=== PATIENT | female | born 1975 | race Caucasian/White ===

== ENCOUNTER 2020-03-09 22:56 | Observation (INO) | payer OTHER ==
[2020-03-09] MEDS ORDERED: KETOROLAC TROMETHAMINE 60 MG/2 ML VIAL ONE (23:02)
--- NOTE | 2020-03-10 00:17 | PDOC ---
History of Present Illness - General Chief Complaint: Chest Pain Stated Complaint: BACK PAIN Time Seen by Provider: 03/09/20 23:49 - History of Present Illness Initial Comments: 03/10/20 00:02 44yo female with PMH of HTN, GERD, and bariatric surgery BIBEMS with epigastric/chest pain, resolved after toradol given by EMS. States she was having her usual chronic back pain, so she took 800mg of ibuprofen. She then began experiencing epigastric/chest pain, shortness of breath, and a feeling that she was suffocating. When EMS gave her toradol, her symptoms resolved. Denies radiation of the pain. Not exertional or positional. Also reports forcing herself to vomit to relieve the pain, but it did not help, and no blood. Reports passing gas normally, last BM earlier today. No urinary symptoms. ROS otherwise negative. PMH/PSH: as above Meds: lisinopril, omeprazole Allergies: none ETOH/drugs/tobacco: denies FH: no concerning cardiac history ROS GENERAL/CONSTITUTIONAL: No fever or chills. No weakness. HEAD, EYES, EARS, NOSE AND THROAT: No change in vision. No ear pain or discharge. No sore throat. CARDIOVASCULAR: chest pain and SOB RESPIRATORY: No cough, wheezing, or hemoptysis. GASTROINTESTINAL: vomiting. No nausea, diarrhea or constipation. GENITOURINARY: No dysuria, frequency, or change in urination. MUSCULOSKELETAL: No joint or muscle swelling or pain. No neck pain. chronic back pain SKIN: No rash NEUROLOGIC: No headache, vertigo, loss of consciousness, or change in strength/sensation. ENDOCRINE: No increased thirst. No abnormal weight change HEMATOLOGIC/LYMPHATIC: No anemia, easy bleeding, or history of blood clots. ALLERGIC/IMMUNOLOGIC: No hives or skin allergy. PE GENERAL: Awake, alert, and fully oriented, in no acute distress HEAD: No signs of trauma, normocephalic, atraumatic EYES: PERRLA, EOMI, sclera anicteric, conjunctiva clear ENT: Auricles normal inspection, hearing grossly normal, nares patent, oropharynx clear without exudates. Moist mucosa NECK: Normal ROM, supple, no lymphadenopathy, JVD, or masses LUNGS: No distress, speaks full sentences, clear to auscultation bilaterally HEART: Regular rate and rhythm, normal S1 and S2, no murmurs, rubs or gallops, peripheral pulses normal and equal bilaterally. CHEST: No chest wall tenderness or crepitus ABDOMEN: Soft, epigastric tenderness. No guarding, no rebound. No masses EXTREMITIES : Normal inspection, Normal range of motion, no edema. No clubbing or cyanosis. NEUROLOGICAL: Normal speech, normal gait, no focal sensorimotor deficits SKIN: Warm, Dry, normal turgor, no rashes or lesions noted Vital Signs Temp Pulse Resp BP Pulse Ox 98.5 F 86 19 127/85 100 03/09/20 23:02 03/09/20 23:02 03/09/20 23:02 03/09/20 23:02 03/09/20 23:02 MDM: 44yo female with PMH of HTN, GERD, and bariatric surgery BIBEMS with epigastric/chest pain, resolved after toradol given by EMS. Also reports forcing herself to vomit to relieve the pain. Exam notable for epigastric tenderness. DDx includes ACS, SBO, bariatric complication, GERD. -EKG -CXR -CBC, CMP, coags, lipase, trops -CT A/P with oral and IV contrast 03/10/20 00:22 EKG: NSR, rate 79, normal axis, QTc 442, ~0.5mm ST depressions in II, aVF, V6. CXR: wnl (my read) Labs: WBC 13 without shift. Labs otherwise wnl. CT A/P: small amount of pelvic free fluid, possibly physiologic. No evidence of acute pathology Heart Score 3. Admit tele obs. 03/10/20 02:25 Signed out to admitting team Past History - Medical History Allergies/Adverse Reactions: Allergies Allergy/AdvReac Type Severity Reaction Status Date / Time No Known Allergies Allergy Verified 03/09/20 23:05 Home Medications: Ambulatory Orders Lisinopril 20 mg PO DAILY 03/10/20 - Reproductive History Is Patient Now?: No - Psycho-Social/Smoking History Smoking History: Never smoked - Substance Abuse Hx (Audit-C & DAST Scrn) How often the patient has a drink containing alcohol: Never Score: In Men: 4 or > Positive; In Women: 3 or > Positive: 0 Screen Result (Pos requires Nsg. Audit-10AR): Negative In the last yr the pt used illegal drug/Rx for NonMed reason: No Score: Yes response is considered Positive: 0 Screen Result (Positive result requires Nsg. DAST-10): Negative *Physical Exam - Vital Signs Last Vital Signs Temp Pulse Resp BP Pulse Ox 98.5 F 86 19 127/85 100 03/09/20 23:02 03/09/20 23:02 03/09/20 23:02 03/09/20 23:02 03/09/20 23:02 Heart Score/ECG Review - History History: Slightly suspicious - Electrocardiogram EKG: Non specific repolarization disturbance - Age Age: 45-65 - Risk Factors Risk Factors Heart Score: Yes Hx Hypertension, Yes Hx Obesity Based on the list above the patient has:: 1-2 risk factors - Troponin Troponin: </= normal limit - Score Heart Score - Total: 3 ED Treatment Course - LABORATORY CBC & Chemistry Diagram: 03/10/20 00:30 03/10/20 00:30 Discharge - Discharge Information Problems reviewed: Yes Clinical Impression/Diagnosis: Epigastric pain, Abnormal EKG Chest pain Qualifiers: Chest pain type: unspecified Qualified Code(s): R07.9 - Chest pain, unspecified Vomiting Qualifiers: Vomiting type: unspecified Vomiting Intractability: non-intractable Nausea presence: without nausea Qualified Code(s): R11.11 - Vomiting without nausea Condition: Stable - Admission Yes - Follow up/Referral - Patient Discharge Instructions - Post Discharge Activity
[2020-03-10 00:54] LABS: BASO % 0.2 % (0-2.0); EOS % 3.2 % (0-4.5); HEMATOCRIT 36.6 % (32.4-45.2); HEMOGLOBIN 12.3 GM/dL (10.7-15.3); LYMPH % 13.6 % (8-40); MCH 29.4 pg (25.7-33.7); MCHC 33.7 g/dl (32.0-36.0); MEAN CELL VOLUME 87.2 fl (80-96); MEAN PLT VOLUME 9.7 fl (7.5-11.1); MONO % 5.5 % (3.8-10.2); NEUT % 77.5 % (42.8-82.8); PLATELET COUNT 225 K/MM3 (134-434); RDW 13.2 % (11.6-15.6)
[2020-03-10 01:07] LABS: INR 1.03 (0.83-1.09); PROTHROMBIN TIME (PATIENT) 12.1 SEC (9.7-13.0)
[2020-03-10 01:10] LABS: ACTIVATED PTT 33.5 SECONDS (25.2-36.5)
[2020-03-10 01:20] LABS: ALBUMIN 3.7 g/dl (3.4-5.0); ALK PHOS 100 U/L (45-117); ANION GAP 7 MMOL/L (8-16); BILIRUBIN,TOTAL 0.3 mg/dL (0.2-1); BLOOD UREA NITROGEN 13.5 mg/dL (7-18); CALCIUM 9.1 mg/dL (8.5-10.1); CHLORIDE 105 mmol/L (98-107); CO2 27 mmol/L (21-32); CREATININE 0.8 mg/dL (0.55-1.3); GLUCOSE,RANDOM 123 mg/dL (74-106); LIPASE 138 U/L (73-393); POTASSIUM 3.9 mmol/L (3.5-5.1); SGOT/AST 32 U/L (15-37); SGPT/ALT 32 U/L (13-61); SODIUM 138 mmol/L (136-145); TOT PROT 6.9 g/dl (6.4-8.2)
--- NOTE | 2020-03-10 02:41 | PDOC ---
Documentation entered by Megan Lind SCRIBE, acting as scribe for Christie Tillman DO. Christie Tillman DO: This documentation has been prepared by the Lelo beltran Brenda, SCRIBE, under my direction and personally reviewed by me in its entirety. I confirm that the documentation accurately reflects all work, treatment, procedures, and medical decision making performed by me. Attending Attestation - Resident Resident Name: Artur Martinez - ED Attending Attestation I have performed the following: I have examined & evaluated the patient, The case was reviewed & discussed with the resident, I agree w/resident's findings & plan, Exceptions are as noted - HPI HPI: 03/10/20 01:26 See resident HPI. - Physicial Exam PE: 03/10/20 01:26 See Resident Physical Exam. - Medical Decision Making 03/10/20 02:37 44 yo female with epigastric and chest pain after taking motrin, s/p one episode of self induced vomiting CT abd/pelvis shows no significant acute abnormality pt found to have S-T segment depressions in multiple leads with no old for comparison will admit for tele obs for atypical chest pain Discharge - Discharge Information Problems reviewed: Yes Clinical Impression/Diagnosis: Epigastric pain, Abnormal EKG Chest pain Qualifiers: Chest pain type: unspecified Qualified Code(s): R07.9 - Chest pain, unspecified Vomiting Qualifiers: Vomiting type: unspecified Vomiting Intractability: non-intractable Nausea presence: without nausea Qualified Code(s): R11.11 - Vomiting without nausea Condition: Stable - Follow up/Referral - Patient Discharge Instructions - Post Discharge Activity
--- NOTE | 2020-03-10 03:36 | HP ---
CHIEF COMPLAINT: epigastric/chest pain PCP: Dr. Mcelroy HISTORY OF PRESENT ILLNESS: 44 year old mainly Dominican speaking female with a past medical history of hypertension, GERD, and bariatric surgery BIBEMS with symptoms of epigastric/chest pain which was resolved after toradol given by EMS. She reported she has chronic back pain and she took 800mg of ibuprofen. She then began experiencing epigastric/chest pain, shortness of breath, and a feeling that she was suffocating. When EMS gave her toradol, her symptoms resolved. She denied radiation of the pain and chest pain is nonexertional or positional. ER course was notable for: (1) normal troponin (2) EKG with a normal sinus rhythm and T wave inversions in lead III,aVR and V4 (3) CT A/P: small amount of pelvic free fluid, possibly physiologic, no evidence of acute pathology (4) CXR normal Recent Travel: no PAST MEDICAL HISTORY: hypertension PAST SURGICAL HISTORY: bariatric surgery Social History: Smoking:no Alcohol:no Drugs: no Family History: Denies heart disease in family Allergies No Known Allergies Allergy (Verified 03/09/20 23:05) HOME MEDICATIONS: Home Medications Medication Instructions Recorded Lisinopril 20 mg PO DAILY 03/10/20 REVIEW OF SYSTEMS CONSTITUTIONAL: Absent: fever, chills, diaphoresis, generalized weakness, malaise, loss of appetite, weight change HEENT: Absent: rhinorrhea, nasal congestion, throat pain, throat swelling, difficulty swallowing, mouth swelling, ear pain, eye pain, visual changes CARDIOVASCULAR: Absent: chest pain, syncope, palpitations, irregular heart rate, li ghtheadedness, peripheral edema RESPIRATORY: Absent: cough, shortness of breath, dyspnea with exertion, orthopnea, wheezing, stridor, hemoptysis GASTROINTESTINAL: Absent: epigastric pain, abdominal distension, nausea, vomiting, diarrhea, constipation, melena, hematochezia GENITOURINARY: Absent: dysuria, frequency, urgency, hesitancy, hematuria, flank pain, genital pain MUSCULOSKELETAL: Absent: myalgia, arthralgia, joint swelling, chronic back pain, neck pain SKIN: Absent: rash, itching, pallor HEMATOLOGIC/IMMUNOLOGIC: Absent: easy bleeding, easy bruising, lymphadenopathy, frequent infections ENDOCRINE: Absent: unexplained weight gain, unexplained weight loss, heat intolerance, cold intolerance NEUROLOGIC: Absent: headache, focal weakness or paresthesias, dizziness, unsteady gait, sei zure, mental status changes, bladder or bowel incontinence PSYCHIATRIC: Absent: anxiety, depression, suicidal or homicidal ideation, hallucinations. PHYSICAL EXAMINATION Vital Signs - 24 hr 03/09/20 03/10/20 03/10/20 23:02 00:50 02:21 Temperature 98.5 F Pulse Rate 86 Pulse Rate [ 83 Radial] Respiratory 19 17 Rate Blood Pressure 127/85 Blood Pressure 114/76 [Left Arm] O2 Sat by Pulse 100 100 100 Oximetry (%) General no acute distress Vital signs reviewed afebrile Neuro no focal deficits Lungs CTA nonlabored breathing effort no rales no wheezing Heart s1s2 rate regular Abdomen soft nontender nondistended Extremities warm to touch no pitting edema no cyanosis Skin nail beds and lips pink Mood calm Laboratory Results - last 24 hr 03/10/20 03/10/20 03/10/20 00:30 00:30 00:30 WBC 13.0 H RBC 4.20 Hgb 12.3 Hct 36.6 MCV 87.2 MCH 29.4 MCHC 33.7 RDW 13.2 Plt Count 225 MPV 9.7 Absolute Neuts (auto) 10.0 H Neutrophils % 77.5 Lymphocytes % 13.6 Monocytes % 5.5 Eosinophils % 3.2 Basophils % 0.2 Nucleated RBC % 0 PT with INR 12.10 INR 1.03 PTT (Actin FS) 33.5 Sodium 138 Potassium 3.9 Chloride 105 Carbon Dioxide 27 Anion Gap 7 L BUN 13.5 Creatinine 0.8 Est GFR (CKD-EPI)AfAm 102.47 Est GFR (CKD-EPI)NonAf 88.41 Random Glucose 123 H Calcium 9.1 Total Bilirubin 0.3 AST 32 ALT 32 Alkaline Phosphatase 100 Creatine Kinase 134 Troponin I < 0.02 Total Protein 6.9 Albumin 3.7 Lipase 138 ASSESSMENT/PLAN: Mrs. Ratliff is a 44 year old mainly Dominican speaking female with a past medical history of hypertension, GERD, and bariatric surgery who presented with symptoms of epigastric/chest pain. She was found to have a normal troponin #1 atypical chest pain normal troponin, CXR normal, BP normotensive EKG with a normal sinus rhythm, T wave inversions in lead III,aVR and V4 continue to trend troponins Cardiology- Dr. Valadez consulted #2 epigastric pain + leukocytosis, currently afebrile lipase normal CT A/P: small amount of pelvic free fluid, no evidence of acute pathology GI consulted- Dr. Landa repeat CBC in am and if WBC elevated consult Infectious Diseases in am #3 hypertension controlled c/w lisinopril DVT Prophylaxis low risk OOB as tolerated SCD's FEN no IVF indicated BMP daily, replete electrolytes as needed low sodium diet Family Medical History Family History: Denies Visit type - Emergency Visit Emergency Visit: Yes ED Registration Date: 03/10/20 Care time: The patient presented to the Emergency Department on the above date and was hospitalized for further evaluation of their emergent condition. - New Patient This patient is new to me today: Yes Date on this admission: 03/10/20 - Critical Care Critical Care patient: No
[2020-03-10 07:21] LABS: HEMATOCRIT 35.9 % (32.4-45.2); MCHC 33.5 g/dl (32.0-36.0); MEAN CELL VOLUME 86.6 fl (80-96); MEAN PLT VOLUME 9.6 fl (7.5-11.1); PLATELET COUNT 231 K/MM3 (134-434); RBC 4.14 M/mm3 (3.60-5.2); RDW 13.1 % (11.6-15.6); WHITE BLOOD COUNT 8.7 K/mm3 (4.0-10.0)
[2020-03-10 07:47] LABS: ANION GAP 8 MMOL/L (8-16); BLOOD UREA NITROGEN 12.8 mg/dL (7-18); CALCIUM 8.7 mg/dL (8.5-10.1); CHLORIDE 106 mmol/L (98-107); CO2 25 mmol/L (21-32); CREATININE 0.7 mg/dL (0.55-1.3); GLUCOSE,RANDOM 100 mg/dL (74-106); POTASSIUM 4.2 mmol/L (3.5-5.1); SODIUM 140 mmol/L (136-145)
--- NOTE | 2020-03-10 09:29 | PN ---
Progress Note, Physician Chief Complaint: Chest pain Epigastric pain History of Present Illness: Ms Devries 44 year old came in with cc of epigastric pain that started around 9 pm last evening after she took 800 mg of ibuprofen for her sciatica pain. Pt then when to sleep, woke up with pain, tried to vomit, which did not help, which made her come to [facility] ER. Pt states she takes ibuprofen once or twice a week for her back pain. Pt denies any SOB, dizziness, light headedness, pain radiation to her back,jaw or arms. Pt states she hasn't had pain like this in the past, doesn't see GI. She has seen Cardiology in [facility] (doesn't know name or hospital affiliation) once. Pt also has hx of gastric bypass. Daughter on the phone has completely different story, that pt's chest pain has been intermittently ongoing for past 3 weeks. She is worried prefers to get the workup done inpatient. - Current Medication List Current Medications: Active Medications Lisinopril (Prinivil) 20 mg PO DAILY FLACO Pantoprazole Sodium (Protonix -) 40 mg PO DAILY FLACO - Objective Vital Signs: Vital Signs Temperature 97.7 F 03/10/20 07:15 Pulse Rate 77 03/10/20 07:15 Respiratory Rate 18 03/10/20 07:15 Blood Pressure 114/73 03/10/20 07:15 O2 Sat by Pulse Oximetry (%) 98 03/10/20 06:10 Constitutional: Yes: Well Nourished, No Distress, Calm Cardiovascular: Yes: Regular Rate and Rhythm Respiratory: Yes: Regular, CTA Bilaterally Gastrointestinal: Yes: Normal Bowel Sounds, Soft, Tenderness, Epigastrium Genitourinary: Yes: WNL Musculoskeletal: Yes: WNL Extremities: Yes: WNL Edema: No Peripheral Pulses WNL: Yes Neurological: Yes: Alert, Oriented Psychiatric: Yes: Alert, Oriented Labs: CBC, BMP 03/10/20 05:43 03/10/20 05:43 INR, PTT INR 1.03 (0.83-1.09) 03/10/20 00:30 Problem List - Problems (1) Chest pain Assessment/Plan: -Trops negative -EKG-Non specific changes -atypical CP -Cardiology consult -No telemetry needed at this time -Echo -Shanel scan in AM, as pt already had breakfast this AM -NPO after midnight Problems reviewed: Yes Code(s): R07.9 - CHEST PAIN, UNSPECIFIED Qualifiers: Chest pain type: unspecified Qualified Code(s): R07.9 - Chest pain, unspecified (2) Epigastric pain Assessment/Plan: -GI consult -PPI -Recommended to avoid NSAID's -May use Acetaminophen 1 g Q6H PRN for pain or even try gabapentin on daily basis. Problems reviewed: Yes Code(s): R10.13 - EPIGASTRIC PAIN Assessment/Plan See problem list
--- NOTE | 2020-03-10 10:04 | CON.GI ---
Consult Consult Specialty:: GI Referred by:: Hospitalist service Reason for Consultation:: Chest pain - History of Present Illness Chief Complaint: [employer] [id number] Utilized: pain in lower chest, palpitations History of Present Illness: 44F admitted for evaluation of lower chest pain that occurred suddently last night. Also describes palpitations. She point to under her left breast when describing other locations of the pain. Alleviated by toradol. No dysphagia. No abdominal pain, nausea, vomiting, fevers chills. No change in bowel habits. No similar episodes in the past. No pain currently. - History Source History Provided By: Patient Limitations to Obtaining History: No Limitations - Past Medical History Cardio/Vascular: Yes: HTN Gastrointestinal: Yes: Other (H. Pylori) ...LMP: 03/09/20 ...: No - Past Surgical History Additional Surgical History: Gastric bypass (unclear if sleeve or actual bypass) - Smoking History Smoking history: Never smoked Home Medications - Allergies Allergies/Adverse Reactions: Allergies Allergy/AdvReac Type Severity Reaction Status Date / Time No Known Allergies Allergy Verified 03/09/20 23:05 - Home Medications Home Medications: Ambulatory Orders Lisinopril 20 mg PO DAILY 03/10/20 Family Medical History Other Family History: Mother: Alive: healthy. Father: : natural causes. 4 brothers, 6 sisters: healthy, some with DM II. 4 children: healthy. No family history of colorectal cancer Review of Systems - Review of Systems Cardiovascular: reports: Chest Pain Respiratory: denies: Cough Gastrointestinal: denies: Abdominal Pain, Nausea, Vomiting Physical Exam-GI Vital Signs: Vital Signs Temperature 97.7 F 03/10/20 07:15 Pulse Rate 77 03/10/20 07:15 Respiratory Rate 18 03/10/20 07:15 Blood Pressure 114/73 03/10/20 07:15 O2 Sat by Pulse Oximetry (%) 98 03/10/20 06:10 Constitutional: Yes: Calm Eyes: No: Sclera Icterus Cardiovascular: Yes: Regular Rate and Rhythm Respiratory: Yes: CTA Bilaterally Gastrointestinal Inspection: Yes: Scars (healed trochar scars). No: Distention ...Auscultate: Yes: Normoactive Bowel Sounds ...Palpate: Yes: Soft. No: Hepatomegaly, Splenomegaly, Tenderness ...Percussion: No: Tympanitic Musculoskeletal: Yes: Other (Tenderness to palpation along left lateral border of sternum and under left breast along ribs) Edema: No Neurological: Yes: Alert Labs: CBC, BMP 03/10/20 05:43 03/10/20 05:43 INR, PTT INR 1.03 (0.83-1.09) 03/10/20 00:30 Problem List - Problems (1) Chest pain Assessment/Plan: Reproducible chest pain, also with palpitations. ? cardiac / musculoskeletal/Somatic etiology Advise: Cardiac evaluation Evaluation of ? somatic cause of pain (costochondritis) per primary team Will sign off, recall GI as needed Code(s): R07.9 - CHEST PAIN, UNSPECIFIED Qualifiers: Chest pain type: unspecified Qualified Code(s): R07.9 - Chest pain, un specified
[2020-03-10] MEDS ORDERED: LISINOPRIL 20 MG TABLET (FP) ONE (10:29)
[2020-03-10] MEDS ORDERED: PANTOPRAZOLE 40 MG TABLET ONE (10:29)
[2020-03-10] MEDS: PANTOPRAZOLE 40 MG TABLET PO SCH (10:30)
--- NOTE | 2020-03-10 10:53 | EKG ---
Test Reason : Blood Pressure : / mmHG Vent. Rate : 079 BPM Atrial Rate : 079 BPM P-R Int : 112 ms QRS Dur : 096 ms QT Int : 386 ms P-R-T Axes : 030 059 013 degrees QTc Int : 442 ms NORMAL SINUS RHYTHM NONSPECIFIC T WAVE ABNORMALITY ABNORMAL ECG NO PREVIOUS ECGS AVAILABLE Confirmed by Reinier Bashir MD ([id number]) on 03/10/2020 10:52:24 AM Referred By: Confirmed By:Reinier Bashir MD
[2020-03-10] MEDS: LISINOPRIL 20 MG TABLET (FP) PO SCH (10:54)
--- NOTE | 2020-03-10 11:20 | CON.CARD ---
Consult Consult Specialty:: Cardiology Referred by:: Dr. Benavides Reason for Consultation:: Chest pain/sob - History of Present Illness Chief Complaint: chest pain/sob History of Present Illness: 44 year old woman pmh HTN, GERD, Obesity s/p bariatric surgery adm with Chest pain and sob. Pt seen and examined today in [facility]. Spoke with her daughter Tamara on the phone at bedside who assisted with translation. Pt has been having intermittent chest discomfort for approx 3 weeks, brief sharp episodes. yesterday had severe sharp chest pain that did not go away and was associated with sob thus she called EMS. She was given Toradol with relief of her pain. Cardiac enzymes wnl. EKG nonspecific abnl. No current chest pain or sob. no palpitations, pnd, orthopnea or le edema. - History Source History Provided By: Patient, Family Member Limitations to Obtaining History: Language Barrier - Past Medical History Cardio/Vascular: Yes: HTN Gastrointestinal: Yes: Other (H. Pylori) ...LMP: 03/09/20 ...: No - Past Surgical History Additional Surgical History: Gastric bypass (unclear if sleeve or actual bypass) - Smoking History Smoking history: Never smoked Home Medications - Allergies Allergies/Adverse Reactions: Allergies Allergy/AdvReac Type Severity Reaction Status Date / Time No Known Allergies Allergy Verified 03/09/20 23:05 - Home Medications Home Medications: Ambulatory Orders Lisinopril 20 mg PO DAILY 03/10/20 Family Medical History Family History: Denies Other Family History: Mother: Alive: healthy. Father: : natural causes. 4 brothers, 6 sisters: healthy, some with DM II. 4 children: healthy. No family history of colorectal cancer Review of Systems - Review of Systems Constitutional: denies: No Symptoms, Chills, Diaphoresis, Fever, Lethargy, Loss of Appetite, Malaise, Night Sweats, Unintentional Wgt. Loss, Weakness, Other Eyes: denies: No Symptoms, Blind Spots, Blurred Vision, Double Vision, Eye Pain, Floaters, Photophobia, Recent Change in Vision, Other HENT: denies: No Symptoms, Difficult Swallowing, Ear Discharge, Ear Pain, Epis taxis, Gingival Bleeding, Hearing Loss, Mouth Swelling, Nasal Congestion, Ocular Prosthesis, Throat Pain, Toothache, Ringing in Ears, Other Neck: denies: No Symptoms, Decreased ROM, Lumps, Pain on Movement, Stiffness, Swollen Glands, Tenderness, Other Cardiovascular: reports: Chest Pain, Shortness of Breath. denies: No Symptoms, Edema, Palpitations, Other Respiratory: reports: SOB. denies: No Symptoms, Cough, Exercise Intolerance, Hemoptysis, Orthopnea, PND, Snoring, SOB on Exertion, Wheezing, Other Gastrointestinal: reports: Abdominal Pain. denies: No Symptoms, Bloating, Constipation, Diarrhea, Dysphagia, Indigestion, Melena, Nausea, Rectal Bleeding, Vomiting, Vomiting Blood, Other Genitourinary: denies: No Symptoms, Burning, Discharge, Dysuria, Flank Pain, Tushar quency, Hematuria, Incontinence, Lesions, Menses, Pain, Testicular Mass, Testicular Pain, Testicular Swelling, Urgency, Vaginal Bleeding, Other Breasts: denies: No Symptoms Reported, See HPI, Breast Implants, Discharge from Nipple, Lumps, Pain, Skin Changes, Other Musculoskeletal: reports: Back Pain. denies: No Symptoms, Crepitus, Decreased ROM, Extremity Pain, Joint Pain, Joint Swelling, Muscle Pain, Muscle Cramps, Muscle Weakness, Other Integumentary: denies: No Symptoms, Blister, Bruising, Change in Color, Eczema, Erythema, Incision, Lesions, Lump, Pallor, Pruritis, Rash, Wound, Other Neurological: denies: No Symptoms, Change in LOC, Change in Speech, Confusion, Dizziness, Headache, Incoordination, Numbness, Parasthesia, Pre-Existing Deficit, Seizure, Syncope, Tremors, Unsteady Gait, Weakness, Other Endocrine: denies: No Symptoms, Excessive Sweating, Flushing, Increased Hunger, Increased Thirst, Intolerance to Cold, Intolerance to Heat, Unexplained Weight G ain, Unexplained Weight Loss, Other Hematology/Lymphatic: denies: No Symptoms, Easily Bruised, Excessive Bleeding, Swollen Glands, Other Psychiatric: denies: No Symptoms, Altered Sleep Pattern, Anxiety, Depression, Hallucinations, Panic, Paranoia, Suicidal, Other - Risk Factors Known Risk Factors: Yes: Hypertension Vital Signs: Vital Signs Temperature 97.7 F 03/10/20 07:15 Pulse Rate 79 03/10/20 10:00 Respiratory Rate 18 03/10/20 10:00 Blood Pressure 110/82 03/10/20 10:00 O2 Sat by Pulse Oximetry (%) 18 L 03/10/20 10:00 Constitutional: Yes: No Distress, Calm Eyes: Yes: Conjunctiva Clear, EOM Intact HENT: Yes: Atraumatic, Normocephalic Neck: Yes: Supple, Trachea Midline Respiratory: Yes: Regular, CTA Bilaterally. No: Rales, Rhonchi, SOB, Wheezes Gastrointestinal: Yes: Normal Bowel Sounds, Soft. No: Distention, Tenderness Cardiovascular: Yes: Regular Rate and Rhythm. No: Bradycardia, Tachycardia, Pulse Irregular, Gallop, Rub, Varicosities JVD: No Carotid Bruit: No PMI: Non-Displaced Heart Sounds: Yes: S1, S2. No: Split S2, S3, S4, Clicks, Gallop, Rub, Bruit Murmur: No: Systolic Murmur, Diastolic Murmur Musculoskeletal: Yes: WNL Extremities: Yes: WNL Edema: No Peripheral Pulses WNL: Yes Peripheral Pulses: 2+ Left Doralis Pedis, 2+ Right Dorsalis Pedis Neurological: Yes: Alert, Oriented, Cran Nerves II-XII Intact Psychiatric: Yes: Alert, Oriented - Other Data Labs, Other Data: CBC, BMP 03/10/20 05:43 03/10/20 05:43 INR, PTT INR 1.03 (0.83-1.09) 03/10/20 00:30 Troponin, BNP 03/10/20 03/10/20 00:30 05:43 Troponin I < 0.02 < 0.02 Troponin, BNP 03/10/20 03/10/20 00:30 05:43 Troponin I < 0.02 < 0.02 nsr, nsst Imaging - Results Chest X-ray: Report Reviewed, Image Reviewed EKG: Report Reviewed, Image Reviewed Other: Report Reviewed, Image Reviewed Assessment/Plan 44 year old woman pmh HTN, GERD, Obesity s/p bariatric surgery adm with Chest pain and sob. Pt seen and examined today in [facility]. Spoke with her daughter Tamara on the phone at bedside who assisted with translation. Pt has been having intermittent chest discomfort for approx 3 weeks, brief sharp episodes. yesterday had severe sharp chest pain that did not go away and was associated with sob thus she called EMS. She was given Toradol with relief of her pain. Cardiac enzymes wnl. EKG nonspecific abnl. No current chest pain or sob. no palpitations, pnd, orthopnea or le edema. Chest pain/sob -atypical -unlikely ACS -cardiac enzymes wnl -ekg nonspecific abnl -plan for Shanel nuclear stress test to confirm no ischemia and echo to evaluate for structural heart disease -ok to dc tele can be admitted to medical floor HTN-adequate -cont home lisinopril for now
[2020-03-10] MEDS ORDERED: ACETAMINOPHEN 500 MG TABLET (FP) PO PRN (12:31)
[2020-03-10] MEDS ORDERED: diphenhydrAMINE HCL 25 MG CAPSULE (FP) PO ONE (20:57)
[2020-03-11 02:28] VITALS: BMI 28.8
--- NOTE | 2020-03-11 08:04 | PN ---
Progress Note, Physician - Current Medication List Current Medications: Active Medications Acetaminophen (Tylenol -) 1,000 mg PO Q6H PRN PRN Reason: PAIN Lisinopril (Prinivil) 20 mg PO DAILY ON LICENSE OF [facility] Last Admin: 03/10/20 10:54 Dose: Not Given Documented by: Pantoprazole Sodium (Protonix -) 40 mg PO DAILY ON LICENSE OF [facility] Last Admin: 03/10/20 10:30 Dose: 40 mg Documented by: - Objective Vital Signs: Vital Signs Temperature 99.3 F 03/11/20 06:00 Pulse Rate 73 03/11/20 06:00 Respiratory Rate 18 03/11/20 06:00 Blood Pressure 113/66 03/11/20 06:00 O2 Sat by Pulse Oximetry (%) 99 03/11/20 02:23 Cardiovascular: Yes: Regular Rate and Rhythm Respiratory: Yes: Regular, CTA Bilaterally Gastrointestinal: Yes: Normal Bowel Sounds, Soft. No: Tenderness Labs: CBC, BMP 03/10/20 05:43 03/10/20 05:43 INR, PTT INR 1.03 (0.83-1.09) 03/10/20 00:30 Problem List - Problems (1) Chest pain Assessment/Plan: -Trops negative -EKG-Non specific changes -atypical CP -Cardiology consult -No telemetry needed at this time -Echo -Shanel scan Code(s): R07.9 - CHEST PAIN, UNSPECIFIED Qualifiers: Chest pain type: unspecified Qualified Code(s): R07.9 - Chest pain, unspecified (2) Epigastric pain Assessment/Plan: -GI consult noted -PPI -Recommended to avoid NSAID's -May use Acetaminophen 1 g Q6H PRN for pain or even try gabapentin on daily basis. Code(s): R10.13 - EPIGASTRIC PAIN
[2020-03-11] MEDS ORDERED: REGADENOSON 0.4 MG/5 ML PRE-FILLED SYRINGE IVPUSH ONE ×2 (09:45→10:37)
--- NOTE | 2020-03-11 10:25 | PN ---
Progress Note, Physician History of Present Illness: pt seen adn examined today in [facility]. no overnight events. no new complaints. - Current Medication List Current Medications: Active Medications Acetaminophen (Tylenol -) 1,000 mg PO Q6H PRN PRN Reason: PAIN Lisinopril (Prinivil) 20 mg PO DAILY [facility] Last Admin: 03/10/20 10:54 Dose: Not Given Documented by: Pantoprazole Sodium (Protonix -) 40 mg PO DAILY [facility] Last Admin: 03/10/20 10:30 Dose: 40 mg Documented by: - Objective Vital Signs: Vital Signs Temperature 99.3 F 03/11/20 06:00 Pulse Rate 73 03/11/20 06:00 Respiratory Rate 18 03/11/20 06:00 Blood Pressure 113/66 03/11/20 06:00 O2 Sat by Pulse Oximetry (%) 99 03/11/20 02:23 Constitutional: Yes: No Distress, Calm Eyes: Yes: Conjunctiva Clear, EOM Intact HENT: Yes: Atraumatic, Normocephalic Neck: Yes: Supple, Trachea Midline Cardiovascular: Yes: Regular Rate and Rhythm, S1, S2. No: Bradycardia, Tachycardia, Pulse Irregular, Bruit, JVD, Gallop, Murmur, Rub, S3, S4, Varicosities Respiratory: Yes: Regular, CTA Bilaterally. No: Rales, Rhonchi, SOB, Wheezes Gastrointestinal: Yes: Normal Bowel Sounds, Soft. No: Distention, Tenderness Musculoskeletal: Yes: WNL Extremities: Yes: WNL Edema: No Peripheral Pulses WNL: Yes Peripheral Pulses: Left Doralis Pedis: 2+, Right Dorsalis Pedis: 2+ Neurological: Yes: Alert, Oriented Psychiatric: Yes: Alert, Oriented Labs: CBC, BMP 03/10/20 05:43 03/10/20 05:43 INR, PTT INR 1.03 (0.83-1.09) 03/10/20 00:30 - ....Imaging Chest X-ray: Report Reviewed, Image Reviewed EKG: Report Reviewed, Image Reviewed Other: Report Reviewed, Image Reviewed Assessment/Plan 44 year old woman pmh HTN, GERD, Obesity s/p bariatric surgery adm with Chest pain and sob. Pt seen and examined today in [facility]. Spoke with her daughter Tamara on the phone at bedside who assisted with translation. Pt has been having intermittent chest discomfort for approx 3 weeks, brief sharp episodes. yesterday had severe sharp chest pain that did not go away and was associated with sob thus she called EMS. She was given Toradol with relief of her pain. Cardiac enzymes wnl. EKG nonspecific abnl. No current chest pain or sob. no palpitations, pnd, orthopnea or le edema. Chest pain/sob -atypical -unlikely ACS -cardiac enzymes wnl -ekg nonspecific abnl -plan for Shanel nuclear stress test today to confirm no ischemia and echo to evaluate for structural heart disease HTN-adequate -cont home lisinopril
--- NOTE | 2020-03-11 12:49 | ECHO ---
Version: 1 Name: VIRGEN CABRERA Exam: Adult Echocardiogram Study Date: 03/11/2020, 8:43 AM Age: 44 Years MMode/2D Measurements & Calculations IVSd: 0.92 cm LVIDs: 2.37 cm LVIDd: 3.6 cm LVPWd: 1.08 cm LAV (MOD-bp): 37.0 ml ACS: 1.95 cm Ao root diam: 2.29 cm LVOT diam: 1.94 cm LA dimension: 3.0 cm Doppler Measurements & Calculations MV E max ulysses: 83.4 cm/sec Med E/e': 8.4 MV A max ulysses: 59.2 cm/sec Med Peak E' Ulysses: 10.0 cm/sec MV E/A: 1.41 Lat E/e': 5.4 Lat Peak E' Ulysses: 15.6 cm/sec Ao max P.0 mmHg Ao V2 max: 132.0 cm/sec TR max ulysses: 218.9 cm/sec TR max P.2 mmHg Left Ventricle The left ventricular size, thickness and function are normal. Ejection Fraction = 60-65%. The transm itral spectral Doppler flow pattern is normal for age. Right Ventricle The right ventricle is normal in size and function. Atria Normal left and right atrial size and function. Mitral Valve The mitral valve is normal in structure and function. There is trace mitral regurgitation. Tricuspid Valve The tricuspid valve is normal in structure and function. There was insufficient TR detected to calcu late RV systolic pressure. There is trace tricuspid regurgitation. Aortic Valve The aortic valve is normal in structure and function. Pulmonic Valve The pulmonic valve is not well seen, but is grossly normal. Great Vessels The aortic root is normal size. Pericardium/Pleura There is no pericardial effusion. Summary Statements This was essentially a normal study. MD Nila Palma03/11/2020, 12:49 PM Ordering Physician: Ulices Hyde Referring Physician: JERRY ARCHER Performed By: Stephanie Davis
[2020-03-11] MEDS: LISINOPRIL 20 MG TABLET (FP) PO SCH (14:11)
[2020-03-11] MEDS: PANTOPRAZOLE 40 MG TABLET PO SCH (14:11)
--- NOTE | 2020-03-11 16:55 | PN ---
Progress Note (short form) - Note Progress Note: NST showed no ischemia. Echo wnl. pt acceptable for discharge from cardiac standpoint. Please call with any questions.
--- NOTE | 2020-03-11 18:00 | DS ---
Physical Examination Vital Signs: Vital Signs Temperature 98.5 F 03/11/20 15:08 Pulse Rate 84 03/11/20 15:08 Respiratory Rate 18 03/11/20 15:08 Blood Pressure 115/72 03/11/20 15:08 O2 Sat by Pulse Oximetry (%) 99 03/11/20 07:00 Labs: CBC, BMP 03/10/20 05:43 03/10/20 05:43 Discharge Summary Problems reviewed: Yes Reason For Visit: CHEST PAIN Current Active Problems Abnormal EKG (Acute) Chest pain (Acute) Epigastric pain (Acute) Vomiting (Acute) Condition: Stable - Instructions Referrals: Richard Mcelroy [Primary Care Provider] - 1 Week - Home Medications Comprehensive Discharge Medication List: Ambulatory Orders Lisinopril 20 mg PO DAILY 03/10/20 Pantoprazole Sodium [Protonix -] 40 mg PO DAILY #30 tablet.ec 03/11/20
[2020-03-12 08:21] VITALS: BP 123/75; PULSE 87; TEMP 99.5
--- NOTE | 2020-03-12 08:49 | DS ---
Physical Examination Vital Signs: Vital Signs Temperature 99.5 F 03/12/20 08:20 Pulse Rate 87 03/12/20 08:20 Respiratory Rate 18 03/12/20 08:20 Blood Pressure 123/75 03/12/20 08:20 O2 Sat by Pulse Oximetry (%) 97 03/12/20 08:20 Cardiovascular: Yes: Regular Rate and Rhythm Respiratory: Yes: Regular, CTA Bilaterally Gastrointestinal: Yes: Normal Bowel Sounds Labs: CBC, BMP 03/10/20 05:43 03/10/20 05:43 Discharge Summary Problems reviewed: Yes Reason For Visit: CHEST PAIN Current Active Problems Abnormal EKG (Acute) Chest pain (Acute) Epigastric pain (Acute) Vomiting (Acute) Hospital Course: - Problems (1) Chest pain Assessment/Plan: -Trops negative -EKG-Non specific changes -atypical CP -Cardiology consult -No telemetry needed at this time -Echo normal lv -Shanel scan no ischemia Code(s): R07.9 - CHEST PAIN, UNSPECIFIED Qualifiers: Chest pain type: unspecified Qualified Code(s): R07.9 - Chest pain, unspecified (2) Epigastric pain Assessment/Plan: -GI consult noted -PPI -Recommended to avoid NSAID's -May use Acetaminophen 1 g Q6H PRN for pain or even try gabapentin on daily basis. Code(s): R10.13 - EPIGASTRIC PAIN Condition: Stable - Instructions Referrals: Richard Mcelroy [Primary Care Provider] - 1 Week - Home Medications Comprehensive Discharge Medication List: Ambulatory Orders Lisinopril 20 mg PO DAILY 03/10/20 Pantoprazole Sodium [Protonix -] 40 mg PO DAILY #30 tablet.ec 03/11/20
[2020-03-12] MEDS: PANTOPRAZOLE 40 MG TABLET PO SCH (08:59)
[2020-03-12] MEDS: LISINOPRIL 20 MG TABLET (FP) PO SCH (08:59)
== END 2020-03-12 09:13 | disposition home or self-care (01) ==
LOC: JER 22:56 → JERBED 03-10 02:01 → J6S 03-11 01:09
PROVIDERS: ADMIT Hospitalist; ATTEND Family Medicine
DX: R10.13 Epigastric pain (principal); R11.11 Vomiting without nausea; R07.9 Chest pain, unspecified; I10 Essential (primary) hypertension; Z98.84 Bariatric surgery status; R01.1 Cardiac murmur, unspecified; K21.9 Gastro-esophageal reflux disease without esophagitis; R94.31 Abnormal electrocardiogram [ECG] [EKG]
CPT/HCPCS: 36415; 71046-TC-FY; 74177-TC; 78452-TC; 80048; 80053; 82550; 83690; 84484; 85025; 85027; 85610; 85730; 93005; 93010; 93017; 93306-TC; 99285-25; A9502; G0378; J2785; U0003